=== PATIENT | female | born 1955 | race Caucasian/White ===

== ENCOUNTER 2017-06-26 11:43 | Emergency (ER) | payer OTHER ==
[~2017-06-26] VITALS: Ht 165.1 cm; Wt 77.9 kg
[~2017-06-26 11:43] MED LIST: ANAS1TAB PO; CALC12502 PO; CYCL10TA PO; HYDR-3580 PO; NAPR500T2 PO
[2017-06-26 11:52] VITALS: BP 164/71; PULSE 78; RESP 16; TEMP 98.2; O2SAT 97
[2017-06-26] MEDS ORDERED: IBUP1TAB7 PO (12:27)
--- NOTE | 2017-06-26 12:28 | PD ---
HPI Chief Complaint: Musculoskeletal Complaint Time Seen by Provider: 12:06 Travel History International Travel<30 days: No Contact w/Intl Traveler<30days: No Traveled to known affect area: No History of Present Illness HPI This is a 61-year-old female here with left groin pain after she overstretched her leg while at work 3 days ago. She reports pain is worse with range of motion and slightly relieved by walking around. She reports symptom improvement with Aleve. Symptom severity is mild to moderate. Denies abdominal pain, flank pain, hip pain. 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) Cardiovascular Problems: No Diabetes: No Diminished Hearing: No Endocrine: No Genitourinary: No Hepatitis: No Hiatal Hernia: No Hypertension: Yes Immune Disorder: No Musculoskeletal: No Neurologic: No Psychiatric: No Reproductive: Yes (pelvic prolapse) Respiratory: No Immunizations Current: Yes Thyroid Disease: No Tetanus Vaccination: < 5 Years Influenza Vaccination: Yes ?: Not Tubal Ligation: Yes Past Surgical History Abdominal Surgery: Yes (appendectomy) AICD: No Appendectomy: Yes Body Medical Devices: bilateral breast implants Cardiac Surgery: No Ear Surgery: No Endocrine Surgery: No Eye Surgery: No Genitourinary Surgery: Yes (prolapse repair) Gynecologic Surgery: Yes (tubaligation, HYSTERECTOMY) Joint Replacement: No Oral Surgery: No Pacemaker: No Thoracic Surgery: Yes (BREAST IMPLANTS) Social History Alcohol Use: No Tobacco Use: Yes (1 pk) Substance Use: No Allergies-Medications (Allergen,Severity, Reaction): Coded Allergies: No Known Allergies (Verified Adverse Reaction, Unknown, 06/26/17) Reported Meds & Prescriptions Reported Meds & Active Scripts Active No Active Prescriptions or Reported Medications Review of Systems Except as stated in HPI: all other systems reviewed are Neg General / Constitutional: No: Fever Physical Exam Narrative GENERAL: Alert and well-appearing 7-year-old female. SKIN: Warm and dry. HEAD: Normocephalic. EYES: No injection or drainage. NECK: Supple GASTROINTESTINAL: Abdomen soft, non-tender, nondistended. MUSCULOSKELETAL: No cyanosis, or edema. +TTP left groin. Hip is nontender. She has mild pain with hip flexion and external rotation. No lower extremity swelling. 2+ distal pulses. Normal sensation. Brisk cap refill. Data Data Last Documented VS Vital Signs Date Time Temp Pulse Resp B/P (MAP) Pulse Ox O2 Delivery O2 Flow Rate FiO2 06/26/17 11:52 98.2 78 16 164/71 (102) 97 MDM Medical Decision Making Medical Screen Exam Complete: Yes Emergency Medical Condition: Yes Differential Diagnosis Inguinal strain, hip fracture, other Narrative Course This is a 61-year-old female here with left inguinal strain after a sudden overstretching injury when her left foot was caught causing her to over extend the left leg. The extremity is neurovascularly intact. She has mild tenderness in the left groin. Symptoms are improved with Aleve. She is requesting only nonnarcotic pain medication. She'll be given a shot of Toradol and prescribed Motrin 800. Diagnosis Primary Impression: Inguinal strain Qualified Codes: S76.212A - Strain of adductor muscle, fascia and tendon of left thigh, initial encounter Referrals: Primary Care Physician Additional Instructions: Ibuprofen as directed. Ice and/or heat for comfort. Light stretching. Scripts Ibuprofen (Ibuprofen) 800 Mg Tab 800 MG PO Q6HR Y for PAIN, #40 TAB 0 Refills Prov: Italia Adame 06/26/17 Disposition: 01 DISCHARGE HOME Condition: Stable Italia Adame Jun 26, 2017 12:27
[2017-06-26] MEDS ORDERED: KETOROLAC TROMETHAMINE 60 MG/2 ML (IM) VIAL IM ONE (12:30)
== END 2017-06-26 12:47 | disposition home or self-care (01) ==
LOC: PHEFT 11:43
DX: S39.011A Strain of muscle, fascia and tendon of abdomen, initial encounter (principal); I10 Essential (primary) hypertension; F17.200 Nicotine dependence, unspecified, uncomplicated; X50.9XXA Other and unspecified overexertion or strenuous movements or postures, initial encounter
CPT/HCPCS: 96372; 99283; J1885

== ENCOUNTER 2017-10-17 15:35 | Emergency (ER) | payer MEDICAID, MEDICARE ==
[~2017-10-17] VITALS: Ht 165.1 cm; Wt 76.8 kg
[~2017-10-17 15:35] MED LIST changes: -ANAS1TAB PO; -CALC12502 PO; -CYCL10TA PO; -HYDR-3580 PO; +IBUP1TAB7 PO; -NAPR500T2 PO
[2017-10-17 15:58] VITALS: BP 215/103; PULSE 84; RESP 16; TEMP 98.1; O2SAT 98
[2017-10-17] MEDS ORDERED: KETOROLAC TROMETHAMINE 30 MG/ML (IVP) VIAL IV PUSH ONE (16:30)
[2017-10-17] MEDS ORDERED: SODIUM CHLORIDE 0.9% FLUSH 10 ML FLUSH IVF PRN (16:30)
[2017-10-17 16:32] VITALS: RESP 16; O2SAT 98
[2017-10-17 16:39] VITALS: BP_SYST 158; BP_SYST 166; BP_DIAS 72; BP_DIAS 86
[2017-10-17 16:46] LABS: AUTOMATED NEUTROPHIL # 3.2 TH/MM3 (1.8-7.7); BASOPHIL # 0.1 TH/MM3 (0-0.2); BASOPHIL % 1.1 % (0.0-2.0); EOSINOPHIL # 0.1 TH/MM3 (0-0.4); EOSINOPHIL % 1.4 % (0.0-4.0); HEMATOCRIT 35.8 % (35.0-46.0); HEMOGLOBIN 12.3 GM/DL (11.6-15.3); LYMPHOCYTE # 2.3 TH/MM3 (1.0-4.8); MEAN CELL VOLUME 87.2 FL (80.0-100.0); MEAN CORPUSCULAR HEMOGLOBIN 29.9 PG (27.0-34.0); MEAN CORPUSCULAR HGB CONC 34.3 % (32.0-36.0); MEAN PLATELET VOLUME 7.2 FL (7.0-11.0); MONO % 7.2 % (0.0-8.0); MONOCYTE # 0.4 TH/MM3 (0-0.9); NEUT % 53.3 % (16.0-70.0); PLATELET COUNT 292 TH/MM3 (150-450); RED CELL DISTRIBUTION WIDTH 15.6 % (11.6-17.2); WHITE BLOOD COUNT 6.1 TH/MM3 (4.0-11.0)
[2017-10-17 17:15] LABS: CHLORIDE 111 MEQ/L (98-107); SODIUM (NA) 141 MEQ/L (136-145)
[2017-10-17 17:19] LABS: ALBUMIN 3.3 GM/DL (3.4-5.0); BICARBONATE 19.7 MEQ/L (21.0-32.0); BLOOD UREA NITROGEN 22 MG/DL (7-18); GLUCOSE,RANDOM 128 MG/DL (74-106)
--- NOTE | 2017-10-17 17:20 | RADRPT ---
EXAM DATE: 10/17/2017 5:16 PM EDT AGE/SEX: 62 years / Female INDICATIONS: Left sided chest pain, shortness of breath, and cough. CLINICAL DATA: This is the patient's initial encounter. Patient reports that signs and symptoms have been present for 1 week and indicates a pain score of 7/10. MEDICAL/SURGICAL HISTORY: . Carcinoma, breast. . No pertinent history. COMPARISON: No prior exams available for comparison. FINDINGS: Vein of the right base and left upper lobe. Lungs are clear. The heart and pulmonary vascularity are normal. . Rib fracture seen of the left fifth rib age indeterminate. CONCLUSION: Left rib fracture age indeterminate. Negative for infiltrate or pneumothorax. Electronically signed by: Gaurang Jewell MD 10/17/2017 5:18 PM EDT
[2017-10-17 17:21] LABS: PROTHROMBIN TIME - PATIENT 10.4 SEC (9.8-11.6)
[2017-10-17 17:22] LABS: ALT (GPT) 76 U/L (10-53); AST (GOT) 60 U/L (15-37); GLOMERULAR FILTRATION RATE 56 ML/MIN (>89)
[2017-10-17 17:23] LABS: TOTAL BILIRUBIN ADULT 0.2 MG/DL (0.2-1.0)
[2017-10-17 17:24] LABS: TOTAL PROTEIN 7.6 GM/DL (6.4-8.2)
[2017-10-17 17:25] LABS: ALKALINE PHOSPHATASE 281 U/L (45-117)
[2017-10-17 17:27] LABS: TROPONIN I LESS THAN 0.02 NG/ML (0.02-0.05)
--- NOTE | 2017-10-17 17:35 | PD ---
HPI Chief Complaint: Respiratory Symptoms Time Seen by Provider: 16:10 Travel History International Travel<30 days: No Contact w/Intl Traveler<30days: No Traveled to known affect area: No History of Present Illness HPI This is a 62-year-old female who has stage IV metastatic breast cancer not currently on any treatment who presents to the emergency department with left- sided rib pain that has been going on for 1 week, constant, severe, worse with deep breaths associated with shortness of breath. She denies any cough. It has been so bad that she had to stop smoking 2 days ago. She denies any fevers or chills. 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) Cardiovascular Problems: No Diabetes: No Diminished Hearing: No Endocrine: No Genitourinary: No Hepatitis: No Hiatal Hernia: No Hypertension: Yes Immune Disorder: No Musculoskeletal: No Neurologic: No Psychiatric: No Reproductive: Yes (pelvic prolapse) Respiratory: No Immunizations Current: Yes Thyroid Disease: No Tetanus Vaccination: Unknown ?: Not Tubal Ligation: Yes Past Surgical History Abdominal Surgery: Yes (appendectomy) AICD: No Appendectomy: Yes Body Medical Devices: bilateral breast implants Cardiac Surgery: No Ear Surgery: No Endocrine Surgery: No Eye Surgery: No Genitourinary Surgery: Yes (prolapse repair) Gynecologic Surgery: Yes (tubaligation, HYSTERECTOMY) Hysterectomy: Yes Joint Replacement: No Oral Surgery: No Pacemaker: No Thoracic Surgery: Yes (BREAST IMPLANTS) Other Surgery: Yes Social History Alcohol Use: No Tobacco Use: Yes (1 pk) Substance Use: No Allergies-Medications (Allergen,Severity, Reaction): Coded Allergies: No Known Allergies (Verified Adverse Reaction, Unknown, 10/17/17) Reported Meds & Prescriptions Reported Meds & Active Scripts Active Ibuprofen 800 Mg Tab 800 Mg PO Q6HR PRN Review of Systems Except as stated in HPI: all other systems reviewed are Neg Physical Exam Narrative GENERAL:Well appearing, no acute distress SKIN: Focused skin assessment warm and dry. HEAD: Atraumatic. Normocephalic. EYES: Pupils equal and round. No injection or drainage. ENT: Moist mucous membranes NECK: Trachea midline. CARDIOVASCULAR: Regular rate and rhythm. No murmur appreciated. RESPIRATORY: Clear to auscultation. Breath sounds equal bilaterally. GASTROINTESTINAL: Abdomen soft, non-tender, nondistended. MUSCULOSKELETAL: No obvious deformities. NEUROLOGICAL: Awake and alert. No obvious cranial nerve deficits. Moving all extremities. PSYCHIATRIC: Appropriate mood and affect; insight and judgment normal. Data Data Last Documented VS Vital Signs Date Time Temp Pulse Resp B/P (MAP) Pulse Ox O2 Delivery O2 Flow Rate FiO2 10/17/17 18:04 66 16 169/81 (110) 98 Room Air 10/17/17 15:58 98.1 Orders Orders Electrocardiogram (10/17/17 16:19) Complete Blood Count With Diff (10/17/17 16:19) Comprehensive Metabolic Panel (10/17/17 16:19) Prothrombin Time / Inr (Pt) (10/17/17 16:19) Act Partial Throm Time (Ptt) (10/17/17 16:19) Troponin I (10/17/17 16:19) Ecg Monitoring (10/17/17 16:19) Bilateral Bp Monitoring (10/17/17 16:19) Iv Access Insert/Monitor (10/17/17 16:19) Oximetry (10/17/17 16:19) Oxygen Administration (10/17/17 16:19) Sodium Chloride 0.9% Flush (Ns Flush) (10/17/17 16:30) Chest, Pa & Lat (10/17/17 16:19) Ketorolac Inj (Toradol Inj) (10/17/17 16:30) Ct Thorax/ Chest W Iv Contrast (10/17/17 ) Oxycodone-Acetamin 5-325 Mg (Percocet (10/17/17 18:00) Iohexol 350 Inj (Omnipaque 350 Inj) (10/17/17 18:44) Labs Laboratory Tests Test 10/17/17 16:35 White Blood Count 6.1 TH/MM3 Red Blood Count 4.10 MIL/MM3 Hemoglobin 12.3 GM/DL Hematocrit 35.8 % Mean Corpuscular Volume 87.2 FL Mean Corpuscular Hemoglobin 29.9 PG Mean Corpuscular Hemoglobin Concent 34.3 % Red Cell Distribution Width 15.6 % Platelet Count 292 TH/MM3 Mean Platelet Volume 7.2 FL Neutrophils (%) (Auto) 53.3 % Lymphocytes (%) (Auto) 37.0 % Monocytes (%) (Auto) 7.2 % Eosinophils (%) (Auto) 1.4 % Basophils (%) (Auto) 1.1 % Neutrophils # (Auto) 3.2 TH/MM3 Lymphocytes # (Auto) 2.3 TH/MM3 Monocytes # (Auto) 0.4 TH/MM3 Eosinophils # (Auto) 0.1 TH/MM3 Basophils # (Auto) 0.1 TH/MM3 CBC Comment DIFF FINAL Differential Comment Prothrombin Time 10.4 SEC Prothromb Time International Ratio 1.0 RATIO Activated Partial Thromboplast Time 24.3 SEC Blood Urea Nitrogen 22 MG/DL Creatinine 1.00 MG/DL Random Glucose 128 MG/DL Total Protein 7.6 GM/DL Albumin 3.3 GM/DL Calcium Level 9.0 MG/DL Alkaline Phosphatase 281 U/L Aspartate Amino Transf (AST/SGOT) 60 U/L Alanine Aminotransferase (ALT/SGPT) 76 U/L Total Bilirubin 0.2 MG/DL Sodium Level 141 MEQ/L Potassium Level 3.7 MEQ/L Chloride Level 111 MEQ/L Carbon Dioxide Level 19.7 MEQ/L Anion Gap 10 MEQ/L Estimat Glomerular Filtration Rate 56 ML/MIN Troponin I LESS THAN 0.02 NG/ML MDM Medical Decision Making Medical Screen Exam Complete: Yes Emergency Medical Condition: Yes Interpretation(s) Afebrile, no tachycardia, hypertensive No leukocytosis Mild transaminitis Alkaline phosphatase is elevated Last 24 hours Impressions Chest X-Ray 10/17/17 1619 Signed Impressions: CONCLUSION: Left rib fracture age indeterminate. Negative for infiltrate or pneumothorax. Chest CT 10/17/17 0000 Signed Impressions: CONCLUSION: 1. Widespread bony metastatic disease with spiculated left breast mass and lef t axillary adenopathy characteristic of metastatic breast carcinoma. No pleural or pericardial effusion. No adenopathy. Differential Diagnosis Pleural effusion, pulmonary embolism, rib fracture, lung metastasis Narrative Course This is a 62-year-old female who has stage IV breast cancer who presents to the emergency department with severe left-sided pain. She has evidence of a rib fracture on the left which is likely the source of her pain. Labs demonstrate mild transaminitis and elevated alkaline phosphatase consistent with her widely metastatic disease. CT demonstrates bony metastasis, suggesting her rib fracture is pathologic. Patient will be discharged and referred to oncology as an outpatient and will be treated with pain control. Diagnosis Primary Impression: Pathologic rib fracture Qualified Codes: M84.48XA - Pathological fracture, other site, initial encounter for fracture Additional Impression: Metastatic breast cancer Patient Instructions: General Instructions Additional Instructions: If you develop severe chest pain, shortness of breath, sweating, lightheadedness , dizziness or difficulty breathing return to the emergency department immediately. Followup with your primary care physician in 2-3 days if your symptoms are not resolved. Med/Other Pt SpecificInfo: Prescription(s) given Scripts Oxycodone-Acetaminophen (Percocet) 5-325 mg Tab 1-2 TAB PO Q4H Y for PAIN, #20 TAB 0 Refills Prov: Josefina Rosas MD 10/17/17 Disposition: 01 DISCHARGE HOME Condition: Stable Josefina Rosas MD Oct 17, 2017 17:35
[2017-10-17] MEDS ORDERED: oxyCODONE/ACETAMINOPHEN 5 MG/325 MG TAB PO ONE (18:00)
[2017-10-17 18:04] VITALS: BP 169/81; PULSE 66; RESP 16; O2SAT 98
[2017-10-17] MEDS ORDERED: IOHEXOL 350 MG/ML 10 ML VIAL (for RAD DIAG) IVCONTRAST ONE (18:44)
--- NOTE | 2017-10-17 19:04 | RADRPT ---
EXAM DATE: October 17, 2017 AGE/SEX: 62 years / Female INDICATIONS: Short of breath and left chest pain. CLINICAL DATA: This is the patient's initial encounter. Patient reports that signs and symptoms have been present for 1 week and indicates a pain score of 5/10. MEDICAL/SURGICAL HISTORY: Carcinoma, breast. Appendectomy. Hysterectomy. Breast augmentation. RADIATION DOSE: 7.39 CTDI (mGy) COMPARISON: No prior exams available for comparison. TECHNIQUE: Multiple contiguous axial images were obtained through the chest during bolus infusion of 55 ml Omnipaque 350 (iohexol) nonionic water-soluble contrast as a single exam dose. Images were obtained in suspended respiration using multiple row detector helical technique. Using automated exp osure control and adjustment of the mA and/or kV according to patient size, radiation dose was kept a s low as reasonably achievable to obtain optimal diagnostic quality images. DICOM format image data is available electronically for review and comparison. FINDINGS: There is a spiculated mass in the left breast measuring up to 3.7 cm in diameter associated with an e nlarged 1.8 cm lymph node characteristic of breast malignancy. There is widespread bony metastatic disease presumably from breast carcinoma with extensive lytic and sclerotic lesions throughout the axial and appendicular skeleton. No pathologic fracture is identifi ed. No lung mass or consolidation. There is no pleural or pericardial effusion. No acute findings in the upper abdomen. CONCLUSION: 1. Widespread bony metastatic disease with spiculated left breast mass and left axillary adenopathy characteristic of metastatic breast carcinoma. No pleural or pericardial effusion. No adenopathy. Electronically signed by: Dustin Gonzalez MD 10/17/2017 7:03 PM EDT
[2017-10-17] MEDS ORDERED: PERC5TAB12 PO (19:21)
[2017-10-17 19:45] VITALS: BP 166/82
--- NOTE | 2017-10-18 16:47 | EKG ---
Date Performed: 10/17/2017 Time Performed: 16:36:51 PTAGE: 62 years EKG: Sinus rhythm INCOMPLETE RIGHT BUNDLE BRANCH BLOCK BORDERLINE ECG NO PREVIOUS TRACING DOCTOR: Isabel Agee Interpretating Date/Time 10/18/2017 16:44:38
== END 2017-10-17 19:48 | disposition home or self-care (01) ==
LOC: PHED 15:35
DX: M84.48XA Pathological fracture, other site, initial encounter for fracture (principal); C50.912 Malignant neoplasm of unspecified site of left female breast; C79.51 Secondary malignant neoplasm of bone; I10 Essential (primary) hypertension; R06.02 Shortness of breath; R94.31 Abnormal electrocardiogram [ECG] [EKG]; Z72.0 Tobacco use
CPT/HCPCS: 71046; 71260; 80053; 84484; 85025; 85610; 85730; 93005; 96374; 99285; J1885; Q9967